=== PATIENT | female | born 2000 | race Caucasian/White ===

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

== ENCOUNTER → 2021-02-12 08:41 | Outpatient (CLI) | payer OTHER, SELFPAY | PROVIDERS: PCP Pediatrics; Visit Provider Family Medicine | DX: Z23 Encounter for immunization (principal) ==

== ENCOUNTER 2021-04-09 13:56 | Emergency (ER) | payer OTHER, SELFPAY ==
[2021-04-09 13:58] VITALS: BP 136/95; PULSE 78; RESP 16; TEMP 36.4; O2SAT 100; BMI 20.7
--- NOTE | 2021-04-09 15:26 | EKG12_ITS ---
Test Reason : SYNCOPE Blood Pressure : / mmHG Vent. Rate : 075 BPM Atrial Rate : 075 BPM P-R Int : 142 ms QRS Dur : 092 ms QT Int : 392 ms P-R-T Axes : 053 054 049 degrees QTc Int : 437 ms Normal sinus rhythm with sinus arrhythmia Normal ECG Confirmed by CITLALY RETANA, MAGED ([id number]), acquisition editor ROXANNA HORTON ([id number]) on 04/10/2021 8:38:33 AM Referred By: DAMIAN/VINOD Confirmed By:MAGED BOUCHER MD
--- NOTE | 2021-04-09 15:28 | EX.ED.DYSGE1 ---
HPI <Dr. Luis Schmidt MD - Last Filed: 04/09/21 17:09> History of Present Illness Chief Complaint: Syncope Informant: patient Onset/Context/Timing Onset: Today (JPTA) Context: Gradual Onset Timing: Intermittent (once) and Lasts (1 minute or so) Quality: lightheaded, followed by fainting Current Severity: Gone Maximum Severity: Severe Worsened by: standing and walking Associated Symptoms Associated Symptoms: lightheaded and shaky Narrative Narrative: Patient states she has been feeling well lately without recent illness, she was in school sitting in class and started feeling lightheaded. She got up to go to the bathroom and on the way to the bathroom in the hallway, it got worse and she lost consciousness collapsing to the floor. She states she woke up on the floor with other people around her, out of concern. She feels like she twisted her left ankle when she fell and denies any other pain or injury. She has had this happen once before when she was in elementary school long ago. She smokes, she has been drinking fluids this morning okay but eating little. She denies any prodromal headache, palpitations, chest pain, shortness of breath. She had Covid back in December, she denies any recent respiratory symptoms. No history of DVT or PE. No leg pain or swelling. No recent hospitalization, long travel, surgery. PFSH <Dr. Luis Schmidt MD - Last Filed: 04/09/21 17:09> PFS Medical History Anxiety Depression Migraines Home Medications sertraline [Zoloft] 100 mg PO DAILY 12/14/20 [History Last Taken Unknown] Allergy/AdvReac Type Severity Reaction Status Date / Time Penicillins Allergy Other Verified 04/09/21 14:01 Surgical History no surgical history Social History household members: family current occupation: [employer] student Smoking Status: Light Smoker (<10/day) alcohol intake: current alcohol intake frequency: a few times a month substance use type: does not use ROS <Dr. Luis Schmidt MD - Last Filed: 04/09/21 17:09> ROS ED Constitutional Constitutional ED: Denies chills or fever(s) Eyes Eyes: Denies change in vision or diplopia ENT ENT ED: Denies rhinorrhea or sore throat Cardiovascular Cardiovascular: Denies chest pain or palpitations Respiratory/Chest Respiratory/Chest: Denies cough or dyspnea Gastrointestinal Gastrointestinal: Denies abdominal pain, diarrhea, nausea or vomiting Genitourinary Genitourinary ED: Denies dysuria or hematuria Musculoskeletal Musculoskeletal: Denies back pain or neck pain Integumentary Denies abscess or rash Neurologic Neurologic: Reports as per HPI and syncope; Denies headache(s), paresthesias or weakness Psychiatric Psychiatric: Denies anxiety or suicidal thoughts EXAM <Dr. Luis Schmidt MD - Last Filed: 04/09/21 17:09> Physical Exam Const Vital Signs: 04/09/21 13:58 04/09/21 15:55 04/09/21 15:59 Temperature 97.5 F L Temperature Source Temporal Pulse Rate 78 78 Respiratory Rate 16 18 Respiratory Effort Normal Non-Labored Respiratory Pattern Normal Blood Pressure 136/95 H 129/74 H Blood Pressure Mean 108 92 Pulse Ox 100 98 Oxygen Delivery Method Room Air Room Air 04/09/21 17:04 Temperature Temperature Source Pulse Rate 74 Respiratory Rate 18 Respiratory Effort Respiratory Pattern Blood Pressure 114/62 Blood Pressure Mean 79 Pulse Ox 99 Oxygen Delivery Method Room Air Positive well nourished and well developed General Appearance ED: well developed and NAD HEENT Reports moist mucous membranes normocephalic and atraumatic Eyes PERRL and EOMs intact bilaterally Neck full ROM and supple Resp normal respiratory effort and clear to auscultation bilaterally Cardio regular rate, regular rhythm and no murmurs Rate: Negative for bradycardia or tachycardic GI non-tender and non-distended Auscultation: normoactive bowel sounds Palpation: soft Back/Spine no CVA tenderness General Back: other FROM Extremity normal to inspection and no calf tenderness Extremity Narrative: Mildly tender just distal to the lateral left malleolus, and in the area of the midfoot, no malleoli or ankle tenderness. Increased pain when stressing the ATFL. Ankle joint is stable. No proximal fibular tenderness or limited range of motion at the knee. General Extremety ED: Yes tenderness; Negative for edema or pulses abnormal General Extremity: Negative for edema or pulses abnormal Neuro oriented x3, CN's II-XII intact bilaterally and no sensory deficits noted Sensorium / Orientation: awake and alert Motor Exam: strength 5/5 throughout Skin no rashes or lesions noted and no wounds <Dr. Steve Schmitt MD - Last Filed: 04/09/21 18:37> Physical Exam Const Vital Signs: 04/09/21 13:58 04/09/21 15:55 04/09/21 15:59 Temperature 97.5 F L Temperature Source Temporal Pulse Rate 78 78 Respiratory Rate 16 18 Respiratory Effort Normal Non-Labored Respiratory Pattern Normal Blood Pressure 136/95 H 129/74 H Blood Pressure Mean 108 92 Pulse Ox 100 98 Oxygen Delivery Method Room Air Room Air 04/09/21 17:04 Temperature Temperature Source Pulse Rate 74 Respiratory Rate 18 Respiratory Effort Respiratory Pattern Blood Pressure 114/62 Blood Pressure Mean 79 Pulse Ox 99 Oxygen Delivery Method Room Air MDM <Dr. Luis Schmidt MD - Last Filed: 04/09/21 17:09> MDM MDM Narrative Medical decision making narrative: X-rays of the left foot and ankle show several fractures and metatarsals, at the bases 2-5. There does not appear to be dissociation at the Lisfranc joint, nor does she have a Szymanski fracture. I discussed that with Dr. Loyola on for podiatry, who advises an orthotic boot, nonweightbearing, and outpatient follow-up. The rest of her work-up showed a slightly elevated D-dimer but was otherwise normal, negative. Sent for CT angiography of the chest to rule out PE as etiology for her syncope which is otherwise unexplained. Of note, the patient does have propranolol on her list of medications, but she was taking that for migraines and she no longer takes propranolol for quite a while. Lab Data Attestation: I reviewed the patient's lab results. Labs: Laboratory Results - last 24 hr 04/09/21 04/09/21 04/09/21 15:50 15:50 15:50 WBC 8.2 RBC 4.71 Hgb 13.5 Hct 40.0 MCV 84.9 MCH 28.7 MCHC 33.8 RDW Std Deviation 37.2 RDW Coeff of Loan 12.0 Plt Count 210 MPV 9.5 Immature Gran % (Auto) 0.200 Neut % (Auto) 80.8 H Lymph % (Auto) 10.8 L Wheeler % (Auto) 6.9 Eos % (Auto) 0.6 Baso % (Auto) 0.7 Absolute Neuts (auto) 6.6 Absolute Lymphs (auto) 0.88 Nucleated RBC % 0 D-Dimer Quant (PE/DVT) Sodium 137 Potassium 3.6 Chloride 105 Carbon Dioxide 25.0 Anion Gap 7 BUN 8 Creatinine 0.62 Estim Creat Clear Calc 146.31 Est GFR (MDRD) Af Amer 157 Est GFR (MDRD) Non-Af 130 BUN/Creatinine Ratio 12.8 Glucose 113 H Calcium 9.0 Troponin I High Sens 3 Serum , Qual NEGATIVE 04/09/21 15:50 WBC RBC Hgb Hct MCV MCH MCHC RDW Std Deviation RDW Coeff of Loan Plt Count MPV Immature Gran % (Auto) Neut % (Auto) Lymph % (Auto) Wheeler % (Auto) Eos % (Auto) Baso % (Auto) Absolute Neuts (auto) Absolute Lymphs (auto) Nucleated RBC % D-Dimer Quant (PE/DVT) 0.50 H Sodium Potassium Chloride Carbon Dioxide Anion Gap BUN Creatinine Estim Creat Clear Calc Est GFR (MDRD) Af Amer Est GFR (MDRD) Non-Af BUN/Creatinine Ratio Glucose Calcium Troponin I High Sens Serum , Qual Radiography Diagnostic Testing: Clinical Impression(s) from Imaging Studies Ankle X-Ray 04/09/21 16:00 IMPRESSION: 1. Acute mildly displaced oblique fractures are present in the bases of the second through fifth metatarsal bones. 2. Normal x-ray examination of the ankle. Electronically Signed: Javier Valenzuela MD at 16:29 EST Reading Location ID and State: [address] [place] [address] , Service support , Chest CTA 04/09/21 16:33 IMPRESSION: 1. The interstitium of both lungs is slightly prominent, consistent with residual thickening from prior multifocal pneumonia. Otherwise no demonstrated consolidation or pulmonary edema or pleural effusion on the current study. 2. No demonstrated pulmonary embolism or arterial dissection. Electronically Signed: Javier Valenzuela MD at 18:08 EST , Foot X-Ray 04/09/21 17:30 IMPRESSION: 1. Acute oblique minimally displaced fractures are present across the proximal shaft/basis of the second through fifth metatarsal bones. The fracture line in the fifth metatarsal bases hairline and just beneath the articular surface Electronically Signed: Javier Valenzuela MD at 18:13 EST , EKG Initial EKG: Attestation: I personally reviewed and interpreted this EKG as follows: Interpretation: Sinus Rhythm (75) and No Acute Injury Pattern Comments: normal axis. nml ekg. <Dr. Steve Schmitt MD - Last Filed: 04/09/21 18:37> MDM MDM Narrative Medical decision making narrative: Patient was turned over to me pending results of CTA. This shows findings consistent with her prior Covid but no sign of PE. I also reviewed her blood work. I reviewed her image results and actual images. A boot orthosis is being applied. Podiatry is already been contacted. I discussed the findings with the patient and answer questions. We also discussed reasons to return. Lab Data Labs: Laboratory Results - last 24 hr 04/09/21 04/09/21 04/09/21 15:50 15:50 15:50 WBC 8.2 RBC 4.71 Hgb 13.5 Hct 40.0 MCV 84.9 MCH 28.7 MCHC 33.8 RDW Std Deviation 37.2 RDW Coeff of Olan 12.0 Plt Count 210 MPV 9.5 Immature Gran % (Auto) 0.200 Neut % (Auto) 80.8 H Lymph % (Auto) 10.8 L Wheeler % (Auto) 6.9 Eos % (Auto) 0.6 Baso % (Auto) 0.7 Absolute Neuts (auto) 6.6 Absolute Lymphs (auto) 0.88 Nucleated RBC % 0 D-Dimer Quant (PE/DVT) Sodium 137 Potassium 3.6 Chloride 105 Carbon Dioxide 25.0 Anion Gap 7 BUN 8 Creatinine 0.62 Estim Creat Clear Calc 146.31 Est GFR (MDRD) Af Amer 157 Est GFR (MDRD) Non-Af 130 BUN/Creatinine Ratio 12.8 Glucose 113 H Calcium 9.0 Troponin I High Sens 3 Serum , Qual NEGATIVE 04/09/21 15:50 WBC RBC Hgb Hct MCV MCH MCHC RDW Std Deviation RDW Coeff of Loan Plt Count MPV Immature Gran % (Auto) Neut % (Auto) Lymph % (Auto) Wheeler % (Auto) Eos % (Auto) Baso % (Auto) Absolute Neuts (auto) Absolute Lymphs (auto) Nucleated RBC % D-Dimer Quant (PE/DVT) 0.50 H Sodium Potassium Chloride Carbon Dioxide Anion Gap BUN Creatinine Estim Creat Clear Calc Est GFR (MDRD) Af Amer Est GFR (MDRD) Non-Af BUN/Creatinine Ratio Glucose Calcium Troponin I High Sens Serum , Qual Radiography Diagnostic Testing: Clinical Impression(s) from Imaging Studies Ankle X-Ray 04/09/21 16:00 IMPRESSION: 1. Acute mildly displaced oblique fractures are present in the bases of the second through fifth metatarsal bones. 2. Normal x-ray examination of the ankle. Electronically Signed: Javier Valenzuela MD at 16:29 EST Reading Location ID and State: [address] [place] [address] , Service support , Chest CTA 04/09/21 16:33 IMPRESSION: 1. The interstitium of both lungs is slightly prominent, consistent with residual thickening from prior multifocal pneumonia. Otherwise no demonstrated consolidation or pulmonary edema or pleural effusion on the current study. 2. No demonstrated pulmonary embolism or arterial dissection. Electronically Signed: Javier Valenzuela MD at 18:08 EST Reading Location ID and State: [address] [place] [address] , Service support , Foot X-Ray 04/09/21 17:30 IMPRESSION: 1. Acute oblique minimally displaced fractures are present across the proximal shaft/basis of the second through fifth metatarsal bones. The fracture line in the fifth metatarsal bases hairline and just beneath the articular surface Electronically Signed: Javier Valenzuela MD at 18:13 EST Reading Location ID and State: [address] [place] [address] , Service support , Discharge Plan Triage Chief Complaint: Syncope ED Provider: Luis Schmidt Dx/Rx/DC Orders Clinical Impression: Syncope, Closed fracture of metatarsal of left foot Instructions: Causes of Syncope, ED Fracture, Foot Prescriptions: No Action sertraline [Zoloft] 100 mg Tablet 100 mg PO DAILY RF: 0 Primary Care Provider: Marcos Vasquez Referrals: Marcos Vasquez MD [Primary Care Provider] - Braeden Loyola DPM [STAFF PHYSICIAN] - As soon as possible (call for appt) Activity Restrictions/Additional Instructions: NO WEIGHTBEARING on left lower extremity. May take boot off in order to bathe, sleep, etc., but for the most part leave boot on and use crutches in order to walk. Disposition Disposition: Home, Self Care
[2021-04-09] MEDS: Ibuprofen 200 MG Tablet 400 MG PO (15:52)
[2021-04-09 15:56] LABS: Absolute Lymphocyte Count 0.88 X10^3/uL (0.83-4.51); Absolute Neutrophil Count 6.6 X10^3/uL (2.0-7.7); Basophil# 0.06 X10^3/uL; Basophil% 0.7 % (0-1); Eosinophil# 0.05 X10^3/uL; Eosinophils% 0.6 % (0-5); Hemoglobin 13.5 g/dL (12.0-15.0); Lymphocyte # 0.88 X10^3/ul (0.83-4.51); Lymphocyte % 10.8 % (19-41); Mean Corp Hgb Conc 33.8 g/dL (32-36); Mean Corpuscular Hgb 28.7 pg (27.0-32.0); Mean Corpuscular Volume 84.9 fL (81-99); Mean Platelet Vol. 9.5 fl (6.2-12.0); Monocyte# 0.56 X10^3/uL; Monocyte% 6.9 % (0-10); NRBC Flagged by Analyzer 0 % (0-5); Neutrophil % 80.8 % (47-70); Platelet Count 210 K/mm3 (150-450); RBC Distribution Width SD 37.2 fl (35.1-43.9); Red Blood Count 4.71 M/mm3 (4.2-5.4); White Blood Count 8.2 K/mm3 (4.4-11.0)
[2021-04-09 15:59] VITALS: BP 129/74; PULSE 78; RESP 18; O2SAT 98
--- NOTE | 2021-04-09 16:00 | RAD_ITS ---
STUDY: X-RAY - LEFT ANKLE REASON FOR EXAM: Female, 20 years old. injury PASSED OUT AND TWISTED ANKLE NO HX INJURY OR SURGERY TECHNIQUE: 3 view(s) of the ankle. COMPARISON: None. FINDINGS: Acute mildly displaced oblique fractures are present in the bases of the second through fifth metatarsal bones. There are no fractures of the ankle bones. Normal visualized distal tibia and fibula. Normal medial and lateral malleoli. Normal tibiotalar articulation and ankle mortise. Normal visualized talus and calcaneus. The visualized subtalar, talonavicular, calcaneocuboid and tarsal articulations are normal. There is no demonstrated fracture. The soft tissue structures are unremarkable. RAD/Ankle min 3 Views IMPRESSION: 1. Acute mildly displaced oblique fractures are present in the bases of the second through fifth metatarsal bones. 2. Normal x-ray examination of the ankle. Electronically Signed: Javier Valenzuela MD at 16:29 EST ,
--- NOTE | 2021-04-09 16:01 | NURSING ---
NO OLD EKGS
[2021-04-09 16:05] LABS: Internal QC Validated? YES +Cl - CLEAR BKGD; Pregnancy, Serum, hCG Quali. NEGATIVE Negative
[2021-04-09 16:13] LABS: Anion Gap 7 (5-15); BUN 8 mg/dL (7-18); BUN/Creat Ratio 12.8 RATIO (10-20); Chloride 105 mmol/L (98-107); Creatinine, Serum 0.62 mg/dL (0.55-1.02); EST Glomerular Filtration Rate 130 mL/min (>60); Est Glom Filt Rate - Afr Amer 157 mL/min (>60); Estimated Creatinine Clearance 146.31 ml/min; Glucose 113 mg/dL (74-106); Potassium 3.6 mmol/L (3.5-5.1); Sodium Level 137 mmol/L (136-145); Troponin-I HS 3 pg/mL (3.0-54.0)
--- NOTE | 2021-04-09 16:33 | CT_ITS ---
STUDY: CTA CHEST REASON FOR EXAM: Female, 20 years old. syncope, elevated d-dimer RADIATION DOSAGE (If Supplied By Facility): CTDIvol = ( 4.24 ) mGy, DLP = ( 134.23 ) mGycm TECHNIQUE: The examination was performed with the intravenous administration of IV 100mL [id number]-[id number]. Post-processing of the angiographic images was performed, with multiplanar reformation and 3D reconstruction. Individualized dose optimization techniques were used for this CT. COMPARISON: Chest x-ray and CTA of the chest dated December 14, 2020 FINDINGS: Normal enhancement of the main pulmonary artery and right and left pulmonary arteries. Normal enhancement of the bilateral peripheral pulmonary arteries. There is no demonstrated pulmonary embolism. Normal thoracic aorta and visualized great vessels. There is no demonstrated aortic dissection. Normal heart and pericardium. Normal mediastinum. Normal hilar regions. Normal visualized trachea and bronchi. The lungs are well expanded. The interstitium of both lungs is slightly prominent, consistent with residual thickening from prior multifocal pneumonia. Otherwise no demonstrated consolidation or pulmonary edema or pleural effusion on the current study. Normal pleura. Normal chest wall structures. Normal osseous structures. Normal visualized upper abdomen. CT/CTA Chest W/WO Contrast IMPRESSION: 1. The interstitium of both lungs is slightly prominent, consistent with residual thickening from prior multifocal pneumonia. Otherwise no demonstrated consolidation or pulmonary edema or pleural effusion on the current study. 2. No demonstrated pulmonary embolism or arterial dissection. Electronically Signed: Javier Valenzuela MD at 18:08 EST ,
[2021-04-09 17:04] VITALS: BP 114/62; PULSE 74; RESP 18; O2SAT 99
--- NOTE | 2021-04-09 17:30 | RAD_ITS ---
STUDY: X-RAY - LEFT FOOT CLINICAL: Female, 20 years old. injury PASSED OUT AND TWISTED ANKLE TECHNIQUE: 3 view(s) of the foot. COMPARISON: Left ankle x-ray dated April 09, 2021 FINDINGS: Acute oblique minimally displaced fractures are present across the proximal shaft/basis of the second through fifth metatarsal bones. The fracture line in the fifth metatarsal bases hairline and just beneath the articular surface. Normal talus, calcaneus, and tarsal bones. Normal visualized subtalar, talonavicular, calcaneocuboid, tarsal and tarsometatarsal articulations. Normal metatarsophalangeal joint of the great toe. Normal tibial and fibular sesamoid bones. Normal interphalangeal joint of the great toe. Normal phalanges of the great toe. Normal second through fifth metatarsophalangeal joints. Normal interphalangeal joints and phalanges of the lesser toes. Mild soft tissue swelling is present over the dorsum of the foot. RAD/Foot min 3 Views IMPRESSION: 1. Acute oblique minimally displaced fractures are present across the proximal shaft/basis of the second through fifth metatarsal bones. The fracture line in the fifth metatarsal bases hairline and just beneath the articular surface Electronically Signed: Javier Valenzuela MD at 18:13 EST Reading Location ID and State: [address] [place] [address] , Service support ,
[2021-04-09] MEDS: 0.9% Normal Saline 1,000 ML 999 ML IV (17:51)
[2021-04-09 18:51] VITALS: BP 112/67
== END 2021-04-09 18:59 | disposition home or self-care (01) ==
PROVIDERS: Emergency Provider Emergency Medicine; PCP Pediatrics; Visit Provider Emergency Medicine
DX: R55 Syncope and collapse (principal); F17.210 Nicotine dependence, cigarettes, uncomplicated; G43.909 Migraine, unspecified, not intractable, without status migrainosus; S92.352A Displaced fracture of fifth metatarsal bone, left foot, initial encounter for closed fracture; W08.XXXA Fall from other furniture, initial encounter; Y92.218 Other school as the place of occurrence of the external cause
CPT/HCPCS: 71275; 73610; 73630; 80048; 84484; 84703; 85025; 85379; 93005; 96360; 99285; J7030; Q9967; A4216